=== PATIENT | female | born 1965 | race Caucasian/White ===

== ENCOUNTER → 2016-12-05 | Outpatient (CLI) | payer BC ==
--- NOTE | 2016-12-09 08:00 | MRI ---
MRI right shoulder without contrast INDICATION: Shoulder pain no specific injury initial encounter TECHNIQUE: Noncontrast MR imaging right shoulder standard protocol FINDINGS: There is mild hypertrophic AC joint osteoarthrosis. Mild subacromial and subdeltoid bursitis. Mild diffuse labral degeneration especially posterior superior labrum. There is severe tendinosis with chronic interstitial partial tear of the distal supraspinatus. There is evidence of mild undersurface and bursal surface extension. Overall involvement is greater than 50%. No complete detachment or retraction. There is a lower grade undersurface partial tear of the distal infraspinatus with background tendinosis. No detachment or retraction. There is grade 4 fatty marbling/atrophy of the teres minor. Mild type II morphology of the acromion. Low-grade tendinosis and fraying subscapularis without rupture or retraction. No bicep rupture or dislocation. IMPRESSION: High-grade partial tear distal supraspinatus with articular and bursal surface involvement Adjacent subacromial and subdeltoid bursitis Diffuse superior labral degenerative tear to the posterior superior labrum Mild AC joint osteoarthrosis Lower grade partial tears of the infraspinatus and subscapularis Electronically signed by: Ruben Parra MD 12/09/2016 7:59 AM CDT
== END ==
LOC: MRI 10:08
PROVIDERS: ATTEND Nurse Practitioner Family
DX: M75.101 Unspecified rotator cuff tear or rupture of right shoulder, not specified as traumatic (principal); M19.019 Primary osteoarthritis, unspecified shoulder

== ENCOUNTER 2019-07-24 05:27 | Emergency (ER) | payer BC ==
[2019-07-24 05:54] VITALS: TEMP 96.4
[2019-07-24] MEDS ORDERED: KETOROLAC TROMETHAMINE INJ 60 MG/2 ML VIAL IM ONE (05:54)
[2019-07-24] MEDS ORDERED: HYDROcodone 5MG/APAP 325MG 1 EA TAB PO ONE (05:55)
[2019-07-24] MEDS ORDERED: CYCLOBENZAPRINE HCL 10 MG TAB PO ONE (05:55)
--- NOTE | 2019-07-24 06:01 | ED.PDOC ---
History of Present Illness - General Source: patient Additional Information: 54yo F who presents for evaluation of back pain. The patient reports pain onset yesterday morning with unclear precipitant. It progressively worsened throughout the day. This evening, the pain has made it difficult for the patient to sleep. It is low, radiates bilaterally and worse with movement. It does not radiate to her legs. She denies urinary symptoms including burning, frequency or incontinence. No fever or recent illness. No known injury. She has difficulty maneuvering due to the pain, but denies motor weakness or sensory loss. The patient has hx of prior lumbar laminectemy and "screws" in 2016. No other reported issues at this time. - History of Present Illness Timing/Duration: 24 hours Quality/Severity: moderate Worsening Factors: movement <José Pan - Last Filed: 07/24/19 05:57> <Monster Deluca - Last Filed: 07/24/19 07:51> - General Chief Complaint: Back Pain or Injury Stated Complaint: back pain Time Seen by Provider: 07/24/19 05:47 - History of Present Illness Allergies/Adverse Reactions: Allergies anesthesia Adverse Reaction (Uncoded 07/24/19 05:43) Home Medications: Ambulatory Orders Cyclobenzaprine HCl [Flexeril] 10 mg PO TID PRN #20 tab 07/24/19 predniSONE [Prednisone] 40 mg PO DAILY #10 tab 07/24/19 Review of Systems - Review of Systems Constitutional: Denies: chills, fever EENTM: States: no symptoms reported Respiratory: Denies: cough, short of breath Cardiology: Denies: chest pain, edema, palpitations Gastrointestinal/Abdominal: Denies: abdominal pain, diarrhea, nausea, vomiting Genitourinary: Denies: discharge, dysuria, frequency Musculoskeletal: States: back pain, muscle pain, muscle stiffness. Denies: neck pain Skin: Denies: change in color, rash Neurological: Denies: headache, numbness, weakness Hematologic/Lymphatic: States: no symptoms reported <José Pan - Last Filed: 07/24/19 05:57> Past Medical History (General) - Patient Medical History Hx Asthma: No Hx Hypertension: No Hx Cancer: Yes - breast Surgical History: other - Vaccination History Hx Tetanus, Diphtheria Vaccination: No Hx Influenza Vaccination: No Hx Pneumococcal Vaccination: No - Social History Hx Alcohol Use: Yes - occ - Female History Patient is a Female of Child Bearing Age (10 -59 yrs old): No <José Pan - Last Filed: 07/24/19 05:57> Family Medical History - Family History Mother Family History: Unknown <José Pan - Last Filed: 07/24/19 05:57> Physical Exam - Physical Exam General Appearance: Alert, Other - Mild distress due to reported discomfort Eyes, Ears, Nose, Throat Exam: PERRL/EOMI, normal ENT inspection Neck Exam: non-tender, full range of motion, normal alignment, normal inspection Cardiovascular/Respiratory: regular rate, rhythm, no M/R/G, normal peripheral pulses, normal breath sounds, no respiratory distress Gastrointestinal/Abdominal: non tender, soft Back Exam: normal inspection, no CVA tenderness, no vertebral tenderness, muscle spasm, other - Bilateral lower lumbar tenderness, no midline tenderness. No T- spine tenderness. Extremity Exam: no evidence of injury, normal range of motion, non-tender Neurologic: no motor/sensory deficits, alert, other - Ambulatory and weight bearing, normal tone. Skin Exam: normal color, warm/dry <José Pan - Last Filed: 07/24/19 05:57> Progress - Progress Progress: DDX: Strain, sprain, disc problem, infection, abscess, discitis, radiculopathy, post op problem, fracture, lesion. 07/24/19 06:07 07/24/19 06:09 <José Pan - Last Filed: 07/24/19 05:57> - Progress Progress: 07/24/19 07:45 acute on chronic low back pain with exacerbation. prednisone 40mg daily for 5 days and flexeril as needed. keep well hydrated. stretching exercises are highly recommended. labs and x-rays were otherwise reassuring. continue as needed motrin and tylenol. er warnings. follow up with pcp later this week. monster deluca 160 - Results/Orders Results/Orders: Laboratory Tests 07/24/19 07/24/19 07/24/19 06:08 06:08 06:08 WBC 7.4 RBC 4.78 Hgb 13.8 Hct 41.0 MCV 85.8 MCH 28.9 MCHC 33.7 RDW 13.6 Plt Count 208 MPV 8.9 Absolute Neuts (auto) 5.00 Absolute Lymphs (auto) 1.70 Absolute Monos (auto) 0.40 Absolute Eos (auto) 0.20 Absolute Basos (auto) 0.10 Neutrophils % 67.8 Lymphocytes % 23.2 Monocytes % 5.8 Eosinophils % 2.2 Basophils % 1.0 ESR 3 Sodium 139 Potassium 3.7 Chloride 104 Carbon Dioxide 25 Anion Gap 13.7 BUN 23 H Creatinine 0.79 BUN/Creatinine Ratio 29.1 H Random Glucose 113 H Serum Osmolality 282.0 Calcium 9.0 lumbar series with no obvious acute pathology. see report. <Monster Deluca - Last Filed: 07/24/19 07:51> Departure <MaximKumar - Last Filed: 07/24/19 05:57> - Departure Diet: regular diet Activity: increase activity as tolerated <Monster Deluca - Last Filed: 07/24/19 07:51> - Departure Clinical Impression: Low back pain Qualifiers: Chronicity: acute Back pain laterality: bilateral Sciatica presence: with sciatica Sciatica laterality: bilateral sciatica Qualified Code(s): M54.42 - Lumbago with sciatica, left side; M54.41 - Lumbago with sciatica, right side Disposition: Discharge to Home or Self Care Condition: Fair Departure Forms: ED Discharge - Pt. Copy, Patient Portal Self Enrollment Instructions: DI for Back Pain With Sciatica Referrals: Nehemias León MD [Primary Care Provider] - 1-5 Days Prescriptions: Cyclobenzaprine HCl [Flexeril] 10 mg PO TID PRN #20 tab PRN Reason: Muscle Spasms predniSONE [Prednisone] 40 mg PO DAILY #10 tab Home Medications: Ambulatory Orders Cyclobenzaprine HCl [Flexeril] 10 mg PO TID PRN #20 tab 07/24/19 predniSONE [Prednisone] 40 mg PO DAILY #10 tab 07/24/19 Additional Instructions: acute on chronic low back pain with exacerbation. prednisone 40mg daily for 5 days and flexeril as needed. keep well hydrated. stretching exercises are highly recommended. labs and x-rays were otherwise reassuring. continue as needed motrin and tylenol. er warnings. follow up with pcp later this week.
--- NOTE | 2019-07-24 07:10 | RAD ---
EXAM: X-ray lumbar spine 3 views CLINICAL DATA: 54-year-old female with acute back pain. TECHNICAL DATA: Three x-ray views of the lumbar spine were performed including an AP, lateral and coned lateral view of the lumbosacral junction. The study was performed on 07/24/2019 at 6:19 AM. Comparison: Previous lumbar spine MRI performed on 01/26/2016. FINDINGS: The lumbar vertebrae are normal in height and alignment. Since the patient's previous MRI she has undergone posterior fusion of L4 and L5 utilizing paired pedicle screws and an intervertebral disc spacer. The indwelling hardware appears to be satisfactory in position and alignment without definite hardware failure. There is mild disc space narrowing at L3-L4 and L5-S1. There is no evidence of acute fracture or subluxation. Bone mineralization is within normal limits. No focal lytic or sclerotic bone lesions are identified. The sacroiliac joints are normal. The hip joints are intact. The surrounding soft tissues are unremarkable. IMPRESSION: 1. Since the prior MRI, the patient has undergone posterior fusion of L4 and L5 utilizing pedicle screws and an intervertebral disc spacer without evidence of hardware failure or acute osseous abnormality. 2. Mild disc space narrowing at L3-L4 and L5-S1. 3. Otherwise, unremarkable three-view lumbar spine. Electronically signed by: Keyona Cade DO 07/24/2019 7:09 AM CDT
[2019-07-24 07:43] VITALS: O2SAT 98
[2019-07-24 08:08] VITALS: BP 129/93
== END 2019-07-24 08:00 | disposition home or self-care (01) ==
LOC: ER 05:27
DX: M54.41 Lumbago with sciatica, right side (principal); M54.42 Lumbago with sciatica, left side; G89.29 Other chronic pain; Z98.890 Other specified postprocedural states; Z85.3 Personal history of malignant neoplasm of breast; Z88.8 Allergy status to other drugs, medicaments and biological substances
CPT/HCPCS: 36415; 72100; 80048; 85025; 85651; J1885

== ENCOUNTER → 2020-04-12 | Outpatient (CLI) | payer BC | LOC: GMA CAST 16:43 | PROVIDERS: ATTEND Family Medicine Sports Medicine | DX: R00.0 Tachycardia, unspecified (principal); Z13.29 Encounter for screening for other suspected endocrine disorder ==